=== PATIENT | female | born 1985 | race Caucasian/White ===

== ENCOUNTER 2024-09-09 12:00 | Emergency (ER) | payer SELFPAY, OTHER ==
[2024-09-09 12:01] VITALS: BP 158/76; PULSE 78; RESP 16; TEMP 37; O2SAT 98; BMI 34.7
--- NOTE | 2024-09-09 13:14 | MRI_ITS ---
PROCEDURE: SPINE LUMBAR (ROUTINE) REASON FOR EXAM: Back pain. TECHNIQUE: Lumbar spine MRI without intravenous gadolinium-based contrast. COMPARISON: None. FINDINGS: Vertebrae: Lumbar vertebral body heights are preserved. Bone marrow signal is unremarkable. Alignment: Normal. No spondylolisthesis. Conus Medullaris: Normally positioned. L1-2: Mild disc bulging, facet arthropathy, and ligamentum flavum hypertrophy resulting in mild bilateral neural foraminal stenosis. No significant central stenosis. L2-3: Mild disc bulging, facet arthropathy, and ligamentum flavum hypertrophy resulting in mild bilateral neural foraminal stenosis. No significant central stenosis. L3-4: Mild disc bulging, facet arthropathy, and ligamentum flavum hypertrophy resulting in minimal central stenosis and mild left neural foraminal stenosis. No significant right neural foraminal stenosis. L4-5: Facet arthropathy resulting in mild to moderate right mild left neural foraminal stenosis. No significant central stenosis. L5-S1: Disc bulging and facet arthropathy resulting in minimal central stenosis and mild bilateral neural foraminal stenosis. MRI/Spine Lumbar (Routine) IMPRESSION: Overall mild multilevel spondylosis. Reading Location: [id number]
--- NOTE | 2024-09-09 13:15 | EDS_ITS ---
HPI History of Present Illness Chief Complaint: Back Detail of Chief Complaint: Back pain Informant: patient Narrative Narrative: Patient presents to the emergency department complaint back pain that she has had for about a week. She denies injury. She woke up with pain. She has been trying home remedies without any type of resolution as she has tried Tylenol and Aleve and IcyHot. She is going to a chiropractor. Patient complains of some numbness in her left leg. She is having some constipation and has not had a bowel movement about 3 days. At times she has had some urinary incontinence and feels that she is not able to empty her bladder completely. [facility] Medical History (Updated 09/09/24 @ 15:[address] Manjit Agustin, DO) Depression Anxiety Medical History no medical history Home Medications ?Medication ?Instructions ?Recorded ?Last Taken ?Type vits,calcium no.78-iron 1 tab PO DAILY Unknown History fumarate-folic acid 29 mg-1 mg tablet (Prenatabs FA) famotidine 40 mg tablet (Pepcid) 40 mg PO DAILY #30 ta bs 07/04/14 Unknown Rx cyclobenzaprine 10 mg tablet 10 mg PO TID PRN Muscle S pasm #20 09/09/24 Unknown Rx TABLETS hydrocodone-acetaminophen 5-325mg 1 tab PO Q4H PRN PRN Pain 2 days 09/09/24 Unknown Rx 5mg-325mg #15 TABLETS methylprednisolone 4 mg tablets in See Rx Instructions PO .COMPLEX 09/09/24 Unknown Rx a dose pack (Medrol (Homer)) #21 tabs Allergy/AdvReac Type Severity Reaction Status Date / Time No Known Allergies Allergy Verified 09/02/13 15:31 Family History no significant family his Surgical History no surgical history Social History Smoking Status: Current every day smoker tobacco type: cigarettes ROS ROS ED Review of Systems ROS Unobtainable: other Constitutional Constitutional ED: Reports lethargy; Denies chills, fever(s), sweats or weight loss Eyes Eyes: Denies blurry vision, change in vision or diplopia ENT ENT ED: Denies rhinorrhea or sore throat Cardiovascular Cardiovascular: Denies chest pain, orthopnea or racing heartbeat Respiratory/Chest Respiratory/Chest: Denies cough, dyspnea, dyspnea on exertion, orthopnea or sputum Gastrointestinal Gastrointestinal: Denies abdominal pain, diarrhea, nausea or vomiting Genitourinary Genitourinary ED: Reports other Details: Urinary incontinence ; Denies dysuria, hematuria or urinary frequency Musculoskeletal Musculoskeletal: Reports back pain; Denies arthralgias, myalgias or neck pain Integumentary Denies abscess, Abrasions or rash Neurologic Neurologic: Denies headache(s) or weakness Psychiatric Psychiatric: Reports anxiety; Denies depression or suicidal thoughts Endocrine Endocrinology: Denies polydipsia, polyphagia or polyuria Hematologic/Lymphatic Hematologic/Lymphatic: Denies easy bleeding, easy bruising or lymphadenopathy Allergic/Immunologic Allergic/Immunologic ED: Denies mouth swelling, tongue swelling or urticaria EXAM Physical Exam Const Vital Signs: 09/09/24 12:01 09/09/24 14:00 Temperature 98.6 F Temperature Source Oral Pulse Rate 78 78 Respiratory Rate 16 16 Blood Pressure 158/76 H 139/78 H Blood Pressure Mean 103 98 Pulse Ox 98 98 Oxygen Delivery Method Room Air Room Air Positive well nourished and well developed General Appearance ED: well developed and NAD HEENT Reports TM's clear and moist mucous membranes normocephalic and atraumatic; Negative for trauma or tenderness Tympanic Membrane ED: Yes TM's clear Eyes PERRL and EOMs intact bilaterally General Eye ED: Negative for pale conjunctiva or scleral icterus Neck no lymphadenopathy, supple and no JVD General: Negative for tenderness Chest Wall inspection of chest normal and palpation of chest normal Chest: Negative for tenderness Resp normal respiratory effort and clear to auscultation bilaterally Effort and Inspection: Negative for respiratory distress or pain with movement Auscultation: Negative for rhonchi, wheezes or diminished lung sounds Cardio regular rate, regular rhythm, S1 normal heart sound, S2 normal heart sound and no murmurs Peripheral Pulses: pulses 2+ throughout GI normal to inspection, nondistended, normoactive bowel sounds, soft to palpation, non-tender, non-distended and no masses Back/Spine no thoracic nor lumbar tenderness Back/Spine Narrative: Mild diffuse tenderness over lumbar spine. Negative straight leg raises. Deep tendon reflexes plus 2 out of 4 bilaterally at the patella and Achilles. She has normal 5 extension bilaterally. Normal sensation to light touch. Extremity normal to inspection General Extremety ED: Negative for edema General Extremity: Negative for edema Neuro oriented x3, CN's II-XII intact bilaterally, no sensory deficits noted and gait normal Sensorium / Orientation: awake, alert, oriented to person, oriented to place and oriented to time Motor Exam: strength 5/5 throughout and strength abnormal Psych mental status grossly normal Skin no rashes or lesions noted and no wounds MDM MDM Lab Data Labs: Laboratory Results - last 24 hr 09/09/24 09/09/24 13:15 13:20 WBC 8.0 RBC 5.21 Hgb 13.6 Hct 42.1 MCV 80.8 L MCH 26.1 L MCHC 32.3 RDW Std Deviation 41.6 RDW Coeff of Clarence 14.4 Plt Count 381 MPV 10.2 Immature Gran % (Auto) 0.300 Neut % (Auto) 59.4 Lymph % (Auto) 28.2 Dent % (Auto) 7.4 Eos % (Auto) 4.1 Baso % (Auto) 0.6 Absolute Neuts (auto) 4.7 Absolute Lymphs (auto) 2.25 Nucleated RBC % 0 Sodium 138 Potassium 3.5 Chloride 107 Carbon Dioxide 23.0 Anion Gap 8 BUN 7 Creatinine 0.70 Estim Creat Clear Calc 120.80 Est GFR (MDRD) Af Amer 122 Est GFR (MDRD) Non-Af 101 BUN/Creatinine Ratio 10.1 Glucose 107 H Calcium 9.0 Urine Color Straw Urine Clarity Clear Urine pH 7.0 Ur Specific Telferner 1.005 Urine Protein Negative Urine Glucose (UA) Normal Urine Ketones Negative Urine Occult Blood Negative Urine Nitrite Negative Urine Bilirubin Negative Urine Urobilinogen Normal Ur Leukocyte Esterase Negative Urine RBC 0 SEEN Urine WBC 0 SEEN Ur Squamous Epith Cells 0-5 SEEN Urine Bacteria RARE Urine Mucus 0 SEEN Discharge Plan Triage Chief Complaint: Back ED Provider: Manjit Agustin Dx/Rx/DC Orders Clinical Impression: Back pain Instructions: ED Back Pain (Acute or Chronic) Prescriptions: New cyclobenzaprine 10 mg tablet 10 mg PO TID PRN (Reason: Muscle Spasm) Qty: 20 0RF hydrocodone-acetaminophen 5-325 mg tablet 1 tab PO Q4H PRN PRN (Reason: Pain) 2 Days Qty: 15 0RF methylprednisolone [Medrol (Homer)] 4 mg tablets,dose pack See Rx Instructions .ROUTE .COMPLEX Qty: 21 0RF Rx Instructions: orally per package directions No Action vit,[id number] [Prenatabs FA] 1 TABLET tablet 1 tab PO DAILY famotidine [Pepcid] 40 MG tablet 40 mg PO DAILY Qty: 30 0RF Primary Care Provider: Jose Angel Lopez NP Referrals: Evan Baldwin PA [Med Staff - Adv Practice Prof] - Gee Cain MD [Med Staff - Active Staff] - 3-5 Days Print Language: Ukrainian
[2024-09-09] MEDS: Ondansetron 4 MG/2 ML Vial IV (13:24)
[2024-09-09] MEDS: HYDROmorphone 1 MG/ML Syringe IV ×2 (13:25→15:23)
[2024-09-09 13:30] LABS: Absolute Lymphocyte Count 2.25 X10^3/uL (0.83-4.51); Absolute Neutrophil Count 4.7 X10^3/uL (2.0-7.7); Basophil# 0.05 X10^3/uL; Basophil% 0.6 % (0-1); Eosinophil# 0.33 X10^3/uL; Eosinophils% 4.1 % (0-5); Hematocrit 42.1 % (37-47); Hemoglobin 13.6 g/dL (12.0-15.0); Lymphocyte # 2.25 X10^3/ul (0.83-4.51); Lymphocyte % 28.2 % (19-41); Mean Corp Hgb Conc 32.3 g/dL (32-36); Mean Corpuscular Hgb 26.1 pg (27.0-32.0); Mean Corpuscular Volume 80.8 fL (81-99); Mean Platelet Vol. 10.2 fl (6.2-12.0); Monocyte# 0.59 X10^3/uL; Monocyte% 7.4 % (0-10); NRBC Flagged by Analyzer 0 % (0-5); Neutrophil # 4.74 X10^3/uL (2.7-7.7); Neutrophil % 59.4 % (47-70); Platelet Count 381 K/mm3 (150-450); RBC Distribution Width CV 14.4 % (11.6-14.6); RBC Distribution Width SD 41.6 fl (35.1-43.9); Red Blood Count 5.21 M/mm3 (4.2-5.4)
[2024-09-09 13:37] LABS: Mucous, Urine 0 SEEN /hpf (<or=2+); Red Blood Cells-Urine 0 SEEN /hpf (0-5); White Blood Cells 0 SEEN /hpf (0-5)
[2024-09-09 13:42] LABS: Color, Urine Straw (Yellow); Glucose, Dipstick Normal (Normal); Ketone-Dipstick Negative (Negative); Leukocyte Esterase-Dipstick Negative /ul (Negative); Nitrite-Dipstick Negative (Negative); Occult Blood-Urine Negative /ul (Negative); Protein-Dipstick Negative (Negative); Specific Gravity, Urine 1.005 (1.002-1.030); Urine Bilirubin Dipstick Negative (Negative); Urine Clarity Clear (Clear); Urine Urobilinogen Normal (Normal)
[2024-09-09 13:45] LABS: Anion Gap 8 (5-15); BUN 7 mg/dL (7-18); BUN/Creat Ratio 10.1 RATIO (10-20); Chloride 107 mmol/L (98-107); EST Glomerular Filtration Rate 101 mL/min (>60); Est Glom Filt Rate - Afr Amer 122 mL/min (>60); Glucose 107 mg/dL (74-106); Potassium 3.5 mmol/L (3.5-5.1); Sodium Level 138 mmol/L (136-145)
[2024-09-09 14:00] VITALS: BP 139/78; PULSE 78; RESP 16; O2SAT 98
[2024-09-09 14:00] LABS: Bacteria RARE /hpf (None Seen); Squamous Epithelial Cells - UA 0-5 SEEN /hpf (5-10)
[2024-09-09] MEDS: Ketorolac 15 MG/ML Vial IV (17:55)
[2024-09-09 18:19] VITALS: BP 164/100; PULSE 97; RESP 20; O2SAT 100
--- NOTE | 2024-09-09 19:33 | ED.RN ---
support was provided to and pt at d/c by librado RN and Nafisa Frances RN.
== END 2024-09-09 19:00 | disposition home or self-care (01) ==
PROVIDERS: Emergency Provider Emergency Medicine; PCP Nurse Practitioner Primary Care; Visit Provider Emergency Medicine
DX: M54.50 Low back pain, unspecified (principal)
CPT/HCPCS: 72148; 80048; 81001; 85025; 96374; 96375; 96376; 99283; A4216; J2405

== ENCOUNTER 2024-10-14 09:00 | Outpatient (RCR) | payer SELFPAY ==
--- NOTE | 2024-09-29 09:55 | HP.PTEVAL ---
Patient's Visit Information Visit Information Visit Information: SARAH OLIVERA is a 39 year old F referred to Physical Therapy by KIKA Cannon with a diagnosis of Lumbar Radic. Date of Evaluation: 09/29/24 Physical Therapist: KEMI Villasenor Visit Plan Frequency: 1-2x /Week Duration: 2 Months Plan: Pt wants to do most of her PT at home on her own. 1-2X/ week for 6 weeks for centralization of sx, postural exercises, neutral spine core stability with HEP HEP: Prone press ups 2 X 10 4 X/ day and bridges. Also instructed pt in sitting in a chair with a L-Roll Subjective Subjective: Pt reports that back in August she started having LBP and she ignored it. The pain did not go away. The pain built up to where she was also having muscle spasms and could not go to the bathroom and pain that was 10/10. She was in the hospital the first week of Sep. She had an MRI. She was referred to pain management and PT. She had 2 injections (last 09-24)from pain management and was better within the first 24 hours. She could not sit or drive or lift anything... all she could do was lay. She has been improving since the injections. She feels the muscle spams and tightness but not pain. She has not taken Vicodin for 3 days and yesterday took 1/2 the muscle relaxers. Her MRI showed multi-level bulging discs and some canal stenosis. Prior to injection she had sacral pain and pain in B buttocks and occ tingling down her leg. 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 She is not lifting... 15-20# will be what she has to lift. She can stand for about 45 min before she has to lay down. Sitting hurts the worst and it feels like it will start flaring up again. Pain Back pain: Pain Intensity (Out of 10): 6 B leg pain: Pain Intensity (Out of 10): 4 L anterior groin pain: Pain Intensity (Out of 10): 6 Objective Objective: Trunk AROM: Flexion 25%, Ext 10%, SB B 25% (increase pain), ROT B 50% (increase pain) Pt is able to walk on heel and toes but has increase pain when walking on her heels. LE MMT: R hip flex 9.6 and L 9.7 R knee ext 14.3 and L 12.1 R knee flex 8.4 and L 8.1 SLUMP test NT SLR --negative B Patellar DTRs 2+/3 B Bridges X 10 (first one hurt but overall eased up the more she did) Piriformis stretch: good muscle length B Hamstring: little tightness B Prone to BETTIE... relief Prone to Prone Press up X 10 (hurts at first but then felt relief and not worse after doing it). Did another 10 Balance/Special Test Scores Oswestry Low Back Score: 23 Goals Goal 1:: I HEP Goal Time Frame: 6-8 Weeks Goal 2:: Be able to return to lifting 15-20# pain free at work no pain Goal Time Frame: 6-8 Weeks Goal 3:: Be able to increase trunk AROM with no pain (at the time of the eval: Flexion 25%, Ext 10%, SB B 25% (increase pain), ROT B 50% (increase pain) Goal Time Frame: 6-8 Weeks Goal 4:: Resume normal sitting without pain Goal Time Frame: 6-8 Weeks Rehabilitation Potential Rehabilitation Potential: Good Anticipated Interventions Patient/Client Instruction: Educate patient on: Condition and Plan of Care For the Purpose of:: To decrease pain, To increase ROM, To improve nutrient delivery to tissue, To improve muscle performance and motor function, To improve ability to perform ADL's, To increase tolerance to activity/condition/position, To improve performance and independence with ADL's, To decrease level of supervision to perform tasks, To improve ability of physical actions for home/community/work/leisure, To improve gait and locomotor functions, To improve health of tissue, To decrease soft tissue restriction and To increase flexibility/ROM Therapeutic Exercise to Include: Strength training, Body mechanics, Postural training, Flexibilty training, Neuromotor development, Active ROM, Dynamic Lumbar Stabilization, Oscar Exercises and Scapular Strength/Stabilization For the Purpose of:: To decrease pain, To increase ROM, To improve nutrient delivery to tissue, To improve muscle performance and motor function, To improve ability to perform ADL's, To increase tolerance to activity/condition/position, To improve performance and independence with ADL's, To decrease level of supervision to perform tasks, To improve ability of physical actions for home/community/work/leisure, To improve gait and locomotor functions, To improve health of tissue, To decrease soft tissue restriction, To increase flexibility/ROM, To improve endurance and To improve balance Cryotherapy (ice pack, ice massage): Yes Thermo therapy (hot pack): Yes For the Purpose of:: To decrease pain, To increase ROM and To improve nutrient delivery to tissue Text: Thank you for the opportunity to evaluate your patient. For Medicare and Medicare HMO plans, please review the plan of care and approve it. It will need to be FAXED BACK to us at [phone] for Medicare purposes. For Medicare only, by signing this I certify the plan of care. Please let me know if there are questions or concerns regarding this plan of care. Physician Signature: Date:
--- NOTE | 2025-01-26 10:27 | HP.PT.NRP ---
Patient Information Patient Information: SARAH OLIVERA was seen in my office for initial evaluation on 09/29/24. The following Plan of Care was established for this patient: POC Established Initial Frequency: 1-2x /Week Initial Duration: 2 Months Anticipated Interventions Patient/Client Instruction: Educate patient on: Condition and Plan of Care For the Purpose of:: To decrease pain, To increase ROM, To improve nutrient delivery to tissue, To improve muscle performance and motor function, To improve ability to perform ADL's, To increase tolerance to activity/condition/position, To improve performance and independence with ADL's, To decrease level of supervision to perform tasks, To improve ability of physical actions for home/community/work/leisure, To improve gait and locomotor functions, To improve health of tissue, To decrease soft tissue restriction and To increase flexibility/ROM Therapeutic Exercise to Include: Strength training, Body mechanics, Postural training, Flexibilty training, Neuromotor development, Active ROM, Dynamic Lumbar Stabilization, Oscar Exercises and Scapular Strength/Stabilization For the Purpose of:: To decrease pain, To increase ROM, To improve nutrient delivery to tissue, To improve muscle performance and motor function, To improve ability to perform ADL's, To increase tolerance to activity/condition/position, To improve performance and independence with ADL's, To decrease level of supervision to perform tasks, To improve ability of physical actions for home/community/work/leisure, To improve gait and locomotor functions, To improve health of tissue, To decrease soft tissue restriction, To increase flexibility/ROM, To improve endurance and To improve balance Cryotherapy (ice pack, ice massage): Yes Thermo therapy (hot pack): Yes For the Purpose of:: To decrease pain, To increase ROM and To improve nutrient delivery to tissue Last Seen Last Seen: This patient was last seen in our office 10/14/24. Pertinent comments regarding their Physical therapy will appear below: [facility] PT At this point I will be discontinuing this patient from physical therapy. I would be happy to see this patient again in the future if found appropriate by the physician. Thank you! Dior Sethi, MPT Balance/Gait/Functional tests Balance/Special Test Scores Oswestry Low Back Score: 23
== END 2024-10-14 19:00 | disposition home or self-care (01) ==
LOC: PT 09:00
PROVIDERS: PCP Nurse Practitioner Primary Care; Referring Provider Student in an Organized Health Care Education/Training Program; Visit Provider Student in an Organized Health Care Education/Training Program
DX: M54.16 Radiculopathy, lumbar region (principal)
CPT/HCPCS: 97110; 97161